=== PATIENT | male | born 1995 | race Caucasian/White ===

== ENCOUNTER 2023-03-29 18:03 | Emergency (ER) | payer BC, SELFPAY ==
[2023-03-29 18:06] VITALS: BP 141/85; PULSE 86; RESP 16; TEMP 36.9; O2SAT 100; BMI 25.0
--- NOTE | 2023-03-29 18:17 | CT_ITS ---
The [address] [address] Patient Name: ISMA BROTHERS MRN: [id number] date: 1995 Sex: M Assigned Patient Location: ER Current Patient Location: ER Accession/Order Number: [id number] Exam Date: 03/29/2023 18:31 Report Date: 03/29/2023 19:16 At the request of: RAYMUNDO WHITE Procedure: CT head/brain wo con EXAM: CT head/brain wo con HISTORY: headache for the past week. COMPARISON: None. TECHNIQUE: Multi slice thin computed tomograms of the brain were obtained, with sagittal and coronal reconstructions. Radiation reduction technique and algorithms were utilized during the study. FINDINGS: The ventricles are not enlarged, the lateral ventricles are slightly asymmetric but within normal variation, and the third ventricles in the midline. The sylvian fissures and cortical sulci are unremarkable. There is no evidence of an intracranial hemorrhage, mass lesion or apparent acute infarct. No abnormality is seen in the deep white matter. The cerebellum and visualized brainstem are intact. The visualized paranasal sinuses are clear. The middle ears are aerated. The mastoid sinuses are clear. There is no apparent acute skull fracture. CT/CT head/brain wo con IMPRESSION: There is no evidence of an intracranial hemorrhage, mass lesion or apparent acute infarct. No abnormality seen in the deep white matter. The paranasal sinuses are clear. There is no apparent acute skull fracture. Direct comparison with a previous study may be helpful in determining the chronicity of these findings. If the patient's symptoms persist and further evaluation is clinically indicated then perhaps an MRI of the brain would be helpful. Electronically authenticated by: MARYANN DAVILA Date: 03/29/2023 19:16
--- NOTE | 2023-03-29 18:21 | ED.GENADUL1 ---
HPI - General Adult General Chief complaint: Headache Stated complaint: HEADACHE, LEFT SIDE WEAKNESS Time Seen by Provider: 03/29/23 18:17 Source: patient Mode of arrival: walk-in Limitations: no limitations History of Present Illness HPI narrative: Presenting to us with a left-sided facial weakness that started almost 3 days ago, he mentioned that it was preceded but this just by the left jaw pain that switched to be behind his ear on Sunday, the patient denies any trauma or fall he also denies any blurred vision or double vision there was no upper or lower extremity weakness Sunday he noted that he have the food drooling from his mouth and that how he knew that he have this weakness no history of hypertension no other complaints Related Data Previous Rx's Medication Instructions Recorded artificial 1 drp ophthalmic (eye) Q4H PRN dry 03/29/23 tears([id number]-[id number]-[id number]) eyes #15 mL 0.1 %-0.3 %-0.2 % eye drops artificial tears(hypromellose) 0.3 2 drp ophthalmic (eye) .qhs #10 03/29/23 % eye gel grams prednisone 20 mg tablet 60 mg PO DAILY 6 days #18 tabs 03/29/23 valacyclovir 1 gram tablet 1,000 mg PO Q8H 7 days #21 tabs 03/29/23 Allergies Allergy/AdvReac Type Severity Reaction Status Date / Time No Known Drug Allergies Allergy Verified 03/29/23 18:10 Review of Systems ROS Status of ROS 10 or more systems reviewed and unremarkable except as noted in history and below PFSH PFS Social History Smoking status: Current every day smoker Exam Narrative Exam Narrative: Nurses notes and vital signs reviewed and patient is not hypoxic. General: Well-appearing and in no apparent distress. Skin: Warm, dry, no pallor noted. No rash. Head: Normocephalic, atraumatic. Neck: Supple, non-tender. Eye: Pupils are equal, round and EOMI. No scleral icterus. Ears, Nose, Mouth, and Throat: TM are clear, no nasal mucosal hypertrophy. Oral mucosa is moist, no posterior oropharynx erythema, uvula is mid-line Cardiovascular: Regular Rate and Rhythm without murmur, gallop or rub. Respiratory: No accessory muscle use or respiratory distress. Lungs are clear to auscultation, no wheezing, rales or rhonchi Chest Wall: no tenderness Back: No midline thoracic or lumbar vertebral tenderness. No CVA tenderness Musculoskeletal: normal ROM, no calf or popliteal tenderness, no lower extremity edema/swelling GI: Abdomen is soft, non-distended. Normal bowel sounds. No masses appreciated. No tenderness to palpation. No rebound, guarding, or rigidity noted. Neurological: A&O x4. Examination of the facial nerve in the left side showed that the patient have weakness in his left side upper and lower facial nerve included, Psychiatric: Cooperative and interactive. Normal mood and affect. Constitutional Vital Signs, click to edit/add: Last Vital Signs Temp 98.4 F 03/29/23 18:06 Pulse 86 03/29/23 18:06 Resp 16 03/29/23 18:06 BP 141/85 03/29/23 18:06 Pulse Ox 100 03/29/23 18:06 O2 Del Method Room Air 03/29/23 18:06 Course Vital Signs Vital signs: Vital Signs Temperature 98.4 F 03/29/23 18:06 Pulse Rate 86 03/29/23 18:06 Respiratory Rate 16 03/29/23 18:06 Blood Pressure 141/85 03/29/23 18:06 Pulse Oximetry 100 03/29/23 18:06 Oxygen Delivery Method Room Air 03/29/23 18:06 Temperature 98.4 F 03/29/23 18:06 Pulse Rate 86 03/29/23 18:06 Respiratory Rate 16 03/29/23 18:06 Blood Pressure 141/85 03/29/23 18:06 Pulse Oximetry 100 03/29/23 18:06 Oxygen Delivery Method Room Air 03/29/23 18:06 Medical Decision Making [facility] Narrative Medical decision making narrative: The patient had a CT head ordered His presentation is typical for Patrick's palsy The patient had a prescription for prednisone as well as valacyclovir and artificial tears as well as artificial lubricant , was instructed about taping his eyes closed at night and also follow-up with his primary care doctor within a week in case the CAT scan is negative after being discharged The patient CT head is still pending and he will be signed out to Dr. Pearson for further planning Discharge Plan Discharge Patient Disposition: Still a Patient
[2023-03-29] MEDS: PREDNISONE 20 MG TABLET 60 MG PO (18:37)
[2023-03-29] MEDS: VALACYCLOVIR HCL 500 MG TABLET 1000 MG PO (19:27)
== END 2023-03-29 19:49 | disposition home or self-care (01) ==
PROVIDERS: Emergency Provider Emergency Medicine; PCP Family Medicine
DX: G51.0 Bell's palsy (principal); Z79.899 Other long term (current) drug therapy; F17.210 Nicotine dependence, cigarettes, uncomplicated
CPT/HCPCS: 70450; 99284